=== PATIENT | female | born 1950 | race Caucasian/White ===

== ENCOUNTER → 2016-04-12 | Outpatient (CLI) | payer MEDICARE, OTHER | LOC: RAD 09:05 | PROVIDERS: ATTEND Family Medicine | DX: Z12.31 Encounter for screening mammogram for malignant neoplasm of breast (principal) ==

== ENCOUNTER 2016-05-26 13:49 | Emergency (ER) | payer MEDICARE, OTHER ==
[~2016-05-26] VITALS: Ht 175.3 cm; Wt 127.5 kg
[2016-05-26] MEDS ORDERED: TETANUS, DIPTHERIA, PERTUSSIS (ADACELL) VACCINE 0.5 ML VIAL IM ONE (15:00)
[2016-05-26] MEDS ORDERED: BACITRACIN OINTMENT 0.9 GM PACKET TOP ONE ×2 (15:40→15:45)
[2016-05-26] MEDS ORDERED: ONDANSETRON 4 MG (ZOFRAN) ORAL DISSOLVE TAB PO ONE (15:40)
[2016-05-26 15:54] VITALS: BP 145/79
== END 2016-05-26 15:55 | disposition home or self-care (01) ==
LOC: ED 13:51
DX: S50.872A Other superficial bite of left forearm, initial encounter (principal); S50.871A Other superficial bite of right forearm, initial encounter; S60.572A Other superficial bite of hand of left hand, initial encounter; S50.812A Abrasion of left forearm, initial encounter; S50.811A Abrasion of right forearm, initial encounter; S60.512A Abrasion of left hand, initial encounter; S60.511A Abrasion of right hand, initial encounter; S60.812A Abrasion of left wrist, initial encounter; S60.811A Abrasion of right wrist, initial encounter; S60.571A Other superficial bite of hand of right hand, initial encounter; W55.03XA Scratched by cat, initial encounter; W55.01XA Bitten by cat, initial encounter; Y93.K9 Activity, other involving animal care; Y92.219 Unspecified school as the place of occurrence of the external cause
CPT/HCPCS: 90715; 99283; A9270; 90471